=== PATIENT | female | born 1995 | race Two or more races ===

== ENCOUNTER 2024-10-21 10:46 | Outpatient (CLI) | payer BC, SELFPAY ==
[2024-10-21 11:47] VITALS: BP 144/82; PULSE 85
[2024-10-21 12:04] VITALS: BMI 57.6
== END 2024-10-21 12:00 | disposition home or self-care (01) ==
LOC: S4S1 10:49 → S4SX 10:50
PROVIDERS: Referring Provider Obstetrics & Gynecology; Visit Provider Obstetrics & Gynecology
DX: O36.8130 Decreased fetal movements, third trimester, not applicable or unspecified (principal); Z3A.35 35 weeks gestation of pregnancy
CPT/HCPCS: 59025

== ENCOUNTER 2024-11-15 14:27 | Observation (INO) | payer BC, SELFPAY ==
[2024-11-15] VITALS (128 sets, daily range): BP systolic 115–182; BP diastolic 57–90; PULSE 73–103; RESP 17; TEMP 36.5–36.7; O2SAT 90–99; BMI 59.9
--- NOTE | 2024-11-15 15:14 | PD.LDHP ---
Documentation for date of: 11/15/24 OB Labor/Induct. HPI History of Present Illness : 4 Para: 1 Term pregnancies: 0 pregnancies: 0 Living children: 0 History of Abortions: Spontaneous and Elective: 2 History of Vaginal deliveries: 1 History of sections: No History of : No History of present illness: Presents for induction of labor at 38 weeks and 6 days. Patient has a history of chronic hypertension and a previous full-term vaginal delivery at 38 weeks in 2021, during which she developed preeclampsia at 34 weeks. The patient has an elevated BMI of 57.87 and is on labetalol for her chronic hypertension. She has been compliant with her care. Current is significant with negative toxicology screen, hemoglobin A1C of 5.5, and normal panel results. Specific lab results include negative Grubbi strip, normal CBC and RPR, and normal glucose screening. Patient has seen maternal- medicine and had a level 2 ultrasound at 23 weeks, showing estimated weight of 595 grams with no anatomic abnormalities detected. Current estimated weight is 7 and a half pounds. Recommendations for managing her chronic hypertension were made based on CHAP study findings. Diagnostic Test Results and Labs: - Gr B Strep (10-26-2024): Negative - CBC, RPR (10-07-2024): Within normal limits - Glucose Screening (09-06-2024): Normal - NIPT (06-10-2024): Negative for all trisomies, consistent with male gender - Hemoglobin A1C (05-28-2024): 5.5 - Panel (05-29-2024): Blood group B-positive, antibody screen negative, rubella immune, RPR nonreactive, hepatitis B and C negative, HIV negative - Level 2 Ultrasound (07-29-2024): Estimated weight 595 grams at 23 weeks, no anatomic abnormalities detected. Review of Systems Review of Systems Systems Reviewed: All systems reviewed, normal except as documented Past Medical History Surgical History SURGICAL: Negative Section Meds Home Medications and Allergies Home Medications ?Medication ?Instructions ?Recorded ?Confirmed ?Type prenat.vits,armond,fyx-[id number] 1 tab PO QDAY 07/18/22 10/21/24 History aspirin 81 mg tablet,delayed 81 mg PO DAILY UD 09/17/24 10/21/24 History release Allergies Allergy/AdvReac Type Severity Reaction Status Date / Time No Known Allergies Allergy Verified 10/21/24 12:07 OB Exam Physical Exam Vital signs: Pulse BP 83 143/80 H 11/15/24 14:41 11/15/24 14:41 Constitutional Constitutional: no acute distress Routine HEENT Exam Head: Present normocephalic and atraumatic Eye: Present EOMI and PERRL ENT: Present mucous membranes moist Routine Neck Exam Neck: Present supple and trachea midline Routine Cardiovascular Exam Cardiovascular: Present RRR Routine Abdominal Exam Abdominal: Present soft and normoactive bowel sounds Detailed Labor and Delivery Exam Comments: - Obstetric Examination: Cervix is closed, thick, and high. heart rate tracing shows a baseline of 145, moderate variability, accelerations present, no decelerations. Routine Extremities Exam Extremities: Present full ROM Routine Skin Exam Skin: Present intact, dry and warm Routine Neurological Exam Neurological: Present alert, oriented X3 and CN II-XII intact Routine Psychiatric Exam Psychiatric: Present normal affect and normal thought process OB Assessment & Plan Assessment and Plan (1) Encounter for induction of labor: Status: Acute Assessment and plan: Management: - Admit for labor and delivery at 38 weeks 6 days, - Induce labor with Dinoprostone for cervical ripening - Proceed to oxytocin when Byrne's score > 8 - Continuous maternal- monitoring - Offer epidural for pain management as desired - Anticipate vaginal delivery - Patient alert and oriented - heart rate: baseline 145, moderate variability, accelerations present, no decelerations Chronic Hypertension: - Continue prescribed labetalol - Monitor blood pressure closely during labor/delivery - Follow maternal- medicine recommendations based on CHAP study Elevated BMI: - BMI 57.87 - Encourage weight management and healthy lifestyle changes Preeclampsia History: - Labs: CBC, RPR, preeclampsia panel - Monitor for preeclampsia signs/symptoms during labor/delivery Group B Streptococcus: - Negative, no intrapartum antibiotic prophylaxis needed Assessment: - Estimated weight 7.5 pounds - Monitor for distress/complications during labor/delivery Blood Glucose Management: - Hemoglobin A1C 5.5 - Continue monitoring blood glucose during labor/delivery Intrapartum Care: - IV fluids: Lactated Ringer's at 25 cc/hour - Patient compliant with care, records available
--- NOTE | 2024-11-15 15:47 | XR_ITS ---
Examination: Complete OB ultrasound greater than 14 weeks Date and time of exam: November 07, 2024 1616 hrs. Indications: Labor induction today, unknown presentation Findings: Viable intrauterine single fetus with single amniotic sac presentation cephalic Cardiac motion 123 BPM Placenta posterior grade 3 Umbilical cord insertion seen Amniotic fluid index 7.5 cm Cervix 3.9 cm Ovaries obscured by bowel gas. Composite estimated gestational age based on BPD, head circumference, abdominal circumference, femur length is 38 weeks 5 days Estimated weight 3538.8 g. Survey of intracranial anatomy, spinal anatomy, abdominal anatomy, four-chamber heart performed with no abnormalities identified. Impression: Viable intrauterine gestation cephalic presentation Estimated gestational age 38 weeks 5 days Estimated weight 3538.8 g.
[2024-11-15 16:19] LABS: Basophils % (Auto) 0 % (0-2.5); Eosinophils # (Auto) 0.1 Thou/mm3 (0.0-0.5); Eosinophils % (Auto) 1 % (0-10); Hematocrit 31.8 % (36.0-46.0); Hemoglobin 10.3 g/dL (12.0-16.0); Immature Granulocytes % (Auto) 1 % (0-0); Immature Granulocytes Auto 0.11 Thou/mm3 (0.00-0.00); Lymphocytes # (Auto) 1.9 Thou/mm3 (1.0-4.8); Lymphocytes % (Auto) 17 % (10-50); Mean Corpuscular HGB Conc 32.4 g/dl (31.0-37.0); Mean Corpuscular Hemoglobin 24.2 pg (25.0-35.0); Mean Corpuscular Volume 75 fL (80-100); Monocytes # (Auto) 0.6 Thou/mm3 (0.0-0.8); Monocytes % (Auto) 5 % (0-12); Neutrophils # (Auto) 8.8 Thou/mm3 (1.8-7.7); Neutrophils % (Auto) 76 % (37-80); Nucleated Red Blood Cell % 0 /100 WBC (0); Platelet Count 250 Thou/mm3 (140-440); RDW Standard Deviation 41.1 fL (36.4-46.3); Red Blood Count 4.26 Miln/mm3 (4.00-5.20); White Blood Count 11.6 Thou/mm3 (3.6-11.0)
[2024-11-15 16:47] LABS: Alanine Aminotransferase 11 U/L (10-49); Albumin, Serum 3.8 gm/dL (3.5-5.0); Albumin/Globulin Ratio 1.6 (1.2-2.2); Alkaline Phosphatase 250 U/L (46-116); Anion Gap 9 (7-16); Aspartate Amino Transferase < 10 U/L (0-34); BUN/Creatinine Ratio 16 Ratio (12-20); Bilirubin,Total 0.3 mg/dL (0.3-1.2); Blood Urea Nitrogen 11 mg/dL (9-23); Calcium 9.4 mg/dL (8.3-10.6); Calcium (Corrected) 9.6 mg/dL (8.5-10.1); Carbon Dioxide 23.7 mMol/L (20.0-31.0); Chloride 105 mMol/L (98-107); Creatinine (Component) 0.7 mg/dL (0.6-1.3); Globulin 2.4 gm/dL (2.3-3.5); Glucose 95 mg/dL (74-106); LDH (Lactate Dehydrogenase) 181 U/L (120-246); Osmolality,Calculated 275 (275-295); Potassium 4.2 mMol/L (3.4-5.1); Sodium 138 mMol/L (136-145); Total Protein 6.2 gm/dL (5.7-8.2); eGFR > 60 See Note
[2024-11-15 17:05] LABS: Syphilis Nonreactive (Nonreactive)
[2024-11-15] MEDS: DINOPROSTONE 10 MG VAG.SUPP VAGINAL (19:16)
[2024-11-15] MEDS: LABETALOL 100 MG TABLET 200 MG PO (19:52)
[2024-11-15] MEDS: LABETALOL INJ 5 MG/ML VIAL 20 ML 40 MG IVP (20:58)
[2024-11-16] VITALS (159 sets, daily range): BP systolic 108–150; BP diastolic 57–85; PULSE 67–103; RESP 16; TEMP 36.8–37.1; O2SAT 78–99
[2024-11-16] MEDS: LABETALOL 100 MG TABLET 200 MG PO ×2 (08:10→20:00)
[2024-11-16] MEDS: MISOPROSTOL 50 mCg TABLET PO ×3 (09:25→18:17)
--- NOTE | 2024-11-16 10:42 | PD.LDPN ---
Documentation for date of: 11/16/24 OB Labor Progress Note Pelvic Exam Dilation (cm): 1 Effacement (%): 50 station: -4 Contractions Monitor mode: External Status Comments: Baseline 145, moderate variability, accelerations present and no decelerations category 1 tracing Assessment and Plan Comments: Continue current plan of care Will administer a round of misoprostol for cervical ripening
== END 2024-11-16 22:35 | disposition home or self-care (01) ==
PROVIDERS: Admitting Provider Obstetrics & Gynecology; PCP Family Medicine; Visit Provider Obstetrics & Gynecology
DX: O61.0 Failed medical induction of labor (principal); O10.913 Unspecified pre-existing hypertension complicating pregnancy, third trimester; O99.820 Streptococcus B carrier state complicating pregnancy; Z3A.38 38 weeks gestation of pregnancy
CPT/HCPCS: 36415; 59899; 76805; 80053; 83615; 84550; 85025; 86780; 86850; 86900; 86901; 96374; G0378; J2795; J3010; J3490; A9270; J1920

== ENCOUNTER 2024-11-23 17:18 | Outpatient (CLI) | payer BC, SELFPAY ==
[2024-11-23] VITALS (16 sets, daily range): BP systolic 143; BP diastolic 73; PULSE 80–101; RESP 18–98; TEMP 37; O2SAT 91–98; BMI 60.2
--- NOTE | 2024-11-23 17:54 | XR_ITS ---
Examination: Biophysical profile, ultrasound Date and time of exam: November 23, 2024 1827 hrs. Indications: Vaginal discharge today Technique: Multiple transabdominal sonographic images of the pelvis abdomen obtained. Attention is directed to the breathing movement, gross body movement, amniotic fluid volume and tone. Findings: Amniotic fluid index 8.6 cm Total biophysical profile is 8 of 8. breathing movement is 2. Gross body movement is 2. tone is 2. Qualitative amniotic fluid volume is 2 Impression: Biophysical profile is 8 of 8.
== END 2024-11-23 20:33 | disposition home or self-care (01) ==
LOC: S4S1 17:22 → S4SX 17:28
PROVIDERS: Referring Provider Obstetrics & Gynecology; Visit Provider Obstetrics & Gynecology
DX: Z34.83 Encounter for supervision of other normal pregnancy, third trimester (principal); Z36.9 Encounter for antenatal screening, unspecified; Z3A.40 40 weeks gestation of pregnancy
CPT/HCPCS: 59025; 76819

== ENCOUNTER 2024-11-25 14:44 | Inpatient (IN) | payer BC, SELFPAY ==
[2024-11-25] VITALS (12 sets, daily range): BP systolic 139–177; BP diastolic 84–98; PULSE 96–133; RESP 15–18; TEMP 36.6–36.9; O2SAT 96; BMI 60.3
--- NOTE | 2024-11-25 15:54 | XR_ITS ---
Examination: age Limited TECHNIQUE: Limited transabdominal sonographic images pelvis Exam date and time: November 25, 2024 1618 hours INDICATIONS: Onset pelvic contractions today pelvic pain, labor evaluation, unknown weight, unknown presentation FINDINGS: Viable intrauterine gestation cephalic presentation Estimated weight 4020 16 g Cardiac motion 132 BPM IMPRESSION: Viable intrauterine gestation cephalic presentation Estimated weight 4216 g
[2024-11-25 15:59] LABS: Basophils # (Auto) 0.1 Thou/mm3 (0.0-0.2); Basophils % (Auto) 0 % (0-2.5); Eosinophils # (Auto) 0.1 Thou/mm3 (0.0-0.5); Eosinophils % (Auto) 0 % (0-10); Hemoglobin 9.9 g/dL (12.0-16.0); Immature Granulocytes % (Auto) 1 % (0-0); Immature Granulocytes Auto 0.21 Thou/mm3 (0.00-0.00); Lymphocytes # (Auto) 2.2 Thou/mm3 (1.0-4.8); Lymphocytes % (Auto) 13 % (10-50); Mean Corpuscular HGB Conc 31.9 g/dl (31.0-37.0); Mean Corpuscular Hemoglobin 23.7 pg (25.0-35.0); Mean Corpuscular Volume 74 fL (80-100); Monocytes # (Auto) 0.9 Thou/mm3 (0.0-0.8); Monocytes % (Auto) 5 % (0-12); Neutrophils # (Auto) 13.8 Thou/mm3 (1.8-7.7); Neutrophils % (Auto) 80 % (37-80); Nucleated Red Blood Cell % 0 /100 WBC (0); Platelet Count 289 Thou/mm3 (140-440); RDW Standard Deviation 41.1 fL (36.4-46.3); Red Blood Count 4.18 Miln/mm3 (4.00-5.20); White Blood Count 17.3 Thou/mm3 (3.6-11.0)
[2024-11-25 16:19] LABS: INR 0.9 (0.9-1.3); Partial Thromboplastin Time 25.1 Seconds (22.0-36.0); Prothrombin Time 10.3 Seconds (9.0-12.2)
[2024-11-25 16:31] LABS: Alanine Aminotransferase 10 U/L (10-49); Albumin, Serum 4.1 gm/dL (3.5-5.0); Albumin/Globulin Ratio 1.5 (1.2-2.2); Alkaline Phosphatase 273 U/L (46-116); Anion Gap 10 (7-16); Aspartate Amino Transferase 10 U/L (0-34); BUN/Creatinine Ratio 19 Ratio (12-20); Bilirubin,Total 0.3 mg/dL (0.3-1.2); Blood Urea Nitrogen 13 mg/dL (9-23); Calcium 8.9 mg/dL (8.3-10.6); Calcium (Corrected) 8.9 mg/dL (8.5-10.1); Carbon Dioxide 20.7 mMol/L (20.0-31.0); Chloride 106 mMol/L (98-107); Creatinine (Component) 0.7 mg/dL (0.6-1.3); Estimated Creatinine Clearance 340.2 mL/min (>60); Globulin 2.7 gm/dL (2.3-3.5); Glucose 105 mg/dL (74-106); Osmolality,Calculated 273 (275-295); Potassium 4.1 mMol/L (3.4-5.1); Sodium 137 mMol/L (136-145); Total Protein 6.8 gm/dL (5.7-8.2); Uric Acid 4.5 mg/dL (3.1-7.8); eGFR > 60 See Note
[2024-11-25 16:32] LABS: Fibrinogen 633 mg/dL (175-375)
[2024-11-25 16:38] LABS: Syphilis Nonreactive (Nonreactive)
[2024-11-25 16:39] LABS: Collection Type, Urine Clean Catch
[2024-11-25 16:42] LABS: Bacteria,Urine Rare; Bilirubin,Urine Negative (Negative); Blood,Urine Negative (Negative); Clarity,Urine Clear (Clear/Hazy); Color,Urine Yellow (Lt Yel-Yel); Glucose, Urine Negative (Negative); Ketones,Urine Trace (Negative); Leukocyte Esterase,Urine Positive (Negative); Nitrite,Urine Negative (Negative); Protein,Urine 1+ (Neg - Trace); RBC,Urine 5 /hpf (0-3); Specific Gravity,Urine 1.034 (1.001-1.035); Squamous Epithelial Cell,Urine 3 /hpf (0-5); Urobilinogen,Urine Negative mg/dL (0.0-1.0); WBC,Urine 4 /hpf (0-5)
[2024-11-25] MEDS: LABETALOL 100 MG TABLET 400 MG PO (17:10)
--- NOTE | 2024-11-25 17:43 | ESHP_ITS ---
Documented by User: Abby Hoffman CNM 11/25/24 18:01 Documentation for date of: 11/25/24 OB Labor/Induct. HPI History of Present Illness : 4 Term pregnancies: 1 pregnancies: 0 Living children: 1 History of Abortions: Spontaneous and Elective: 2 History of sections: No History of : No History of present illness: 29 y/o 40w 2d Patient has a history of chronic hypertension and a previous full-term vaginal delivery at 38 weeks in 2021, during which she developed preeclampsia at 34 weeks. Pt is here after being discharge from a failed induction 11/15/24. The patient has an elevated BMI of 60 and on labetalol for her chronic hypertension. She has been compliant with her care. Current is significant with negative toxicology screen, hemoglobin A1C of 5.5, and normal panel results. Specific lab results, normal CBC with the exception of anemia and RPR, and normal glucose screening. Patient has seen maternal- medicine and had a level 2 ultrasound at 23 weeks, showing estimated weight of 595 grams with no anatomic abnormalities detected. Current estimated weight is about 4100g Recommendations for managing her chronic hypertension were made based on CHAP study findings. Diagnostic Test Results and Labs: - Gr B Strep (10-26-2024): Negative - CBC, RPR (10-07-2024): Within normal limits - Glucose Screening (09-06-2024): Normal - NIPT (06-10-2024): Negative for all trisomies, consistent with male gender - Hemoglobin A1C (05-28-2024): 5.5 - Panel (05-29-2024): Blood group B-positive, antibody screen negative, rubella immune, RPR nonreactive, hepatitis B and C negative, HIV negative - Level 2 Ultrasound (07-29-2024): Estimated weight 595 grams at 23 weeks, no anatomic abnormalities detected. History of Present Dating criteria: based on 1st trimester US only Adequate Care: Yes Ultrasounds: normal 1st trimester US and normal mid trimester US Obstetrical complications: gestational hypertension and other (Anemia) Medical complications: other (Morbid obesity with BMI 60) Labs Maternal Blood Type: B Pos Labs: Positive: Rubella Titre, Negative: RPR, Hepatitis B, HIV, Chlamydia, Gonorrhea and Group Beta Strep and Unknown: Covid-19 Review of Systems Review of Systems Systems Reviewed: All systems reviewed, normal except as documented Past Medical History Surgical History SURGICAL: Negative Section Meds Home Medications and Allergies Home Medications ?Medication ?Instructions ?Recorded ?Confirmed ?Type prenat.vits,armond,ana-[id number] 1 tab PO QDAY 07/18/22 11/25/24 History aspirin 81 mg tablet,delayed 81 mg PO DAILY UD 09/17/24 11/25/24 History release Allergies Allergy/AdvReac Type Severity Reaction Status Date / Time No Known Allergies Allergy Verified 11/25/24 16:00 OB Exam Physical Exam Vital signs: Pulse Resp BP Pulse Ox 108 H 18 145/88 H 96 11/25/24 17:41 11/25/24 15:15 11/25/24 17:41 11/25/24 15:15 Constitutional Constitutional: no acute distress Routine HEENT Exam Head: Present normocephalic and atraumatic Eye: Present EOMI, PERRL and normal accommodation ENT: Present mucous membranes moist Routine Neck Exam Neck: Present full ROM Routine Respiratory Exam Respiratory: Absent respiratory distress Routine Cardiovascular Exam Cardiovascular: Present RRR Routine Abdominal Exam Abdominal: Present soft Comments: Gravid Uterus EFW 4100g Routine Exam External: Present normal urethra appearance; Absent lesions Detailed Labor and Delivery Exam Dilation (cm): 1 Effacement (%): 0 Cervix position: posterior station: -3 Consistency: soft Presentation: Vertex Membranes: intact Baseline heart rate: 130 monitor accelerations: 15x15 monitor decelerations: None care home variability: Moderate (11-25) Contraction frequency (min): None Routine Extremities Exam Extremities: Present full ROM Routine Back/Spine/Pelvis Exam Back/Spine: Present full ROM Routine Skin Exam Skin: Present intact, dry and warm Routine Neurological Exam Neurological: Present alert, oriented X3 and CN II-XII intact Routine Psychiatric Exam Psychiatric: Present normal affect and normal thought process OB Results Labs 11/25/24 15:15 11/25/24 15:15 Labs: Short CBC 11/25/24 Range/Units 15:15 WBC 17.3 H (3.6-11.0) Thou/mm3 Hgb 9.9 L (12.0-16.0) g/dL Hct 31.0 L (36.0-46.0) % Plt Count 289 D (140-440) Thou/mm3 BMP 11/25/24 15:15 Sodium 137 Potassium 4.1 Chloride 106 Carbon Dioxide 20.7 BUN 13 Creatinine 0.7 Glucose 105 Calcium 8.9 Liver Function 11/25/24 Range/Units 15:15 Total Bilirubin 0.3 (0.3-1.2) mg/dL AST 10 (0-34) U/L ALT 10 (10-49) U/L Alkaline Phosphatase 273 H (46-116) U/L Albumin 4.1 (3.5-5.0) gm/dL Urine 11/25/24 Range/Units 15:30 Urine Color Yellow (Lt Yel-Yel) Urine Clarity Clear (Clear/Hazy) Urine pH 6.0 (5.0-7.0) Ur Specific [place] 1.034 (1.001-1.035) Urine Protein 1+ A (Neg - Trace) Urine Glucose (UA) Negative (Negative) OB Assessment & Plan Assessment and Plan (1) Encounter for induction of labor: Status: Acute (2) Morbid obesity with BMI of 60.0-69.9, adult: Status: Acute (3) Chronic hypertension affecting : Status: Acute (4) 40 weeks gestation of : Status: Acute (5) Anemia affecting in third trimester: Status: Acute Additional Plan Induction method: other (Cervidil) Plan: induction, anticipate NVD and consult MD stiles Additional Plan Comment: Dr. Young is comanaging this pt with CNM. Dr. Young is managing BP and medication CNM manage labor Continue labetalol BID PIH labs ordered US ordered for presentation which is cephalic and EFW 4000g PPH meds at bedside Shoulder precautions Preeclampsia precautions Documented by User: Deysi Young MD 11/26/24 07:52 OB Labor/Induct. HPI History of Present Illness Comments: PATIENT RETURNS BACK TODAY FOR IOL FOR CHTN ON MEDICATION( NON COMPLIANT ON MEDS AND BP IN SEVER RANGE ON ADMISSION) WAS SENT BACK AFTER SHE DID NOT CHANGE CERVICAL STATUS AFTER ADMISSION ON 11/15 BY ANOTHER PROVIDER and SCHEDULED TO RETURN AT 40W2D FOR IOL FOR CHTN on meds Meds Home Medications and Allergies Home Medications ?Medication ?Instructions ?Recorded ?Confirmed ?Type prenat.vits,armond,tks-afix-ntuvj 1 tab PO QDAY 07/18/22 11/25/24 History aspirin 81 mg tablet,delayed 81 mg PO DAILY UD 09/17/24 11/25/24 History release Allergies Allergy/AdvReac Type Severity Reaction Status Date / Time No Known Allergies Allergy Verified 11/25/24 16:00 OB Exam Physical Exam Vital signs: Pulse Resp BP Pulse Ox 108 H 18 145/88 H 96 11/25/24 17:41 11/25/24 15:15 11/25/24 17:41 11/25/24 15:15 OB Results Labs 11/25/24 15:15 11/25/24 15:15 Labs: Short CBC 11/25/24 Range/Units 15:15 WBC 17.3 H (3.6-11.0) Thou/mm3 Hgb 9.9 L (12.0-16.0) g/dL Hct 31.0 L (36.0-46.0) % Plt Count 289 D (140-440) Thou/mm3 BMP 11/25/24 15:15 Sodium 137 Potassium 4.1 Chloride 106 Carbon Dioxide 20.7 BUN 13 Creatinine 0.7 Glucose 105 Calcium 8.9 Liver Function 11/25/24 Range/Units 15:15 Total Bilirubin 0.3 (0.3-1.2) mg/dL AST 10 (0-34) U/L ALT 10 (10-49) U/L Alkaline Phosphatase 273 H (46-116) U/L Albumin 4.1 (3.5-5.0) gm/dL Urine 11/25/24 Range/Units 15:30 Urine Color Yellow (Lt Yel-Yel) Urine Clarity Clear (Clear/Hazy) Urine pH 6.0 (5.0-7.0) Ur Specific [place] 1.034 (1.001-1.035) Urine Protein 1+ A (Neg - Trace) Urine Glucose (UA) Negative (Negative) OB Assessment & Plan Assessment and Plan (1) Encounter for induction of labor: Status: Acute (2) Morbid obesity with BMI of 60.0-69.9, adult: Status: Acute (3) Chronic hypertension affecting : Status: Acute (4) 40 weeks gestation of : Status: Acute (5) Anemia affecting in third trimester: Status: Acute
[2024-11-25] MEDS: DINOPROSTONE 10 MG VAG.SUPP VAGINAL (18:00)
[2024-11-26] VITALS (143 sets, daily range): BP systolic 110–182; BP diastolic 56–100; PULSE 36–117; RESP 14–20; TEMP 36.6–37.2; O2SAT 87–100
[2024-11-26] MEDS: LABETALOL 100 MG TABLET 400 MG PO ×2 (00:53→09:02)
[2024-11-26] MEDS: ceFAZolin/D5W 2 GM IV 2 GM/100 ML BAG IV (03:13)
--- NOTE | 2024-11-26 04:49 | PD.LDPN ---
Documentation for date of: 11/26/24 OB Labor Progress Note Pelvic Exam Dilation (cm): 1 Effacement (%): 0 station: -3 Contractions Contraction frequency: None Assessment and Plan Comments: This is a retrospective note. This patient was being induced for chronic hypertension uncontrolled. Of note this patient is morbidly obese with BMI of 60 and was brought for induction on 15 November however because she did not change her cervical status she was sent home to return back on the . On admission the patient had elevated blood pressures and admitted of not taking her labetalol in the morning after p.o. administration of labetalol the patient came back to her normal systolic blood pressure which was in 140 and has been in 140 systolic until at 1:08 AM when she was due for her next dose of labetalol and about to get epidural. After epidural anticipating drop in blood pressure(also because the patient had just received her oral labetalol) IV medications where hold.on evaluation after the epidural blood pressures were again and 140 systolic . I was called by the room nurse at 2:55 AM that the baby is down in 80s. I evaluated the patient at the bedside at 3:05 AM. heart monitoring showed heart tones in 110. For last 10 minutes. Tracing was very interrupted, possibility of maternal heart tones being picked up was notified to me by the room nurse. On vaginal exam patient was 4 to 5 cm. Given the morbid obesity heart tones I planned for rupture of membranes and placing internal monitors. Gross bloody amniotic fluid was seen on a room. Suspecting an placental abruption stat was called
--- NOTE | 2024-11-26 04:56 | PD.GYNPROC ---
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 Identity was confirmed by double identifiers and she was placed on the operating table.The abdomen and perineum were prepped in the usual sterile fashion and a Jaime catheter was placed to continuous drainage.? Sterile drapes were applied.??A Pfannenstiel skin incision was made with a scalpel and carried to the subcutaneous fat up to the rectus fascia.? The rectus fascia was incised on either side of the midline and the incisions were extended bilaterally.? The fascia was gently dissected off the ventral surface of the rectus muscle both superiorly and inferiorly.. Carefully a peritioneal window craeted and after ruling out adhesion of bowel and bladder it was extended . Hysterotomy incision done on rupture of membranes gross bloody amniotic fluid was seen along with about 500 cc of blood clot. The baby was cephalic position delivered via vertex umbilical cord , was doubly clamped, divided and the infant was handed over to the waiting team.? placenta delivered by controlled cord traction . The interior of the uterus was now thorougly cleaned of all blood and debris and membranes.? Given patient's morbid obesity 2 assistants were required to achieve adequate exposure uterus was exteriorized anterior of the uterus was again cleaned. The? hysterotomy was closed using 0 vicryl suture in double layers. Once the repair was completed the hysterotomy was inspected, was noted to be adequately hemostatic . Muscle oozing stopped by bovie. The rectus fascia was repaired using PDS in a running fashion.? The subcutaneous layer was now, approximated with 3-0 vicryl in double layers.? All bleeding points were cauterized using the Bovie.?The skin was closed using 4-0 Monocryl in a subcuticular fashion.? The skin was cleaned and a sterile dressing was applied. The patient was now undraped, the abdomen and back were thoroughly cleaned and she was now transferred to the recovery room in a stable Estimated blood loss (ml): 1,000 Narrative: A total blood loss of 1500 including 500 cc of blood clot recovered during the Surgical staff Operation Date: 11/26/24 03:15 <No data on this case meets the specified criteria> Diagnosis Problem List Completed Was Problem List Reviewed/Reconciled?: Yes
[2024-11-26] MEDS: OXYTOCIN in NS 20 units 20 UNIT/1,000 ML BAG 125 UNIT IV (07:50)
--- NOTE | 2024-11-26 07:52 | OBDSUM_ITS ---
Vacuum Assisted Delivery Additional Comments Additional comments: TXA given DIC labs drawn 2nd set IV Transfusion started 2 units Data (Armando) Data Hx Section: No : 4 Para: 1 Term: 1 : 0 : 2 Delivery Data (Armando) Labor Data Induction: Yes ROM Date: 11/26/24 ROM Time: 03:11 Rupture Type: AROM Amniotic Fluid: Bloody Delivery Data Labor Onset Stage 1 Date: 11/26/24 Labor Onset Stage 1 Time: 03:26 Labor Onset Stage 2 Date: 11/26/24 Labor Onset Stage 2 Time: 03:26 Delivery Date: 11/26/24 Delivery Time: 03: Gestational age (weeks): 40 Gestational age (days): 3 Placenta Delivery Date: 11/26/24 Placenta Delivery Time: 03:27 Delivered by: Deysi Young Delivery nurse: Caity Monreal Other staff at delivery: Nursery Nurse Other staff at delivery: Nurse Other staff at delivery: 2nd Nurse Other staff at delivery: Virginie Rose Other staff at delivery: Katie Jim Other staff at delivery: MATIAS CARNEY Delivery Method Delivery: Delivery Type: Primary Anesthesia Type Primary Anesthesia: Epidural Placenta Placenta Delivery: Manual EBL Estimated blood loss (ml): 1,500 Umbilical Cord Placenta/Cord Complication: Placental Abruption [place] Data (Armando) Data Infant Gender: Male Weight Grams: 3830 1 Minute Total: 4 5 Minute Total: 7 10 Minute Total: 8
[2024-11-26] MEDS: KETOROLAC INJ 30 MG/ML VIAL IVP (08:05)
[2024-11-26] MEDS: LABETALOL INJ 5 MG/ML VIAL 20 ML 20 MG IVP (10:20)
--- NOTE | 2024-11-26 10:44 | CHAP ---
Patient was visited by a Spiritual Care Volunteer on 11/26/2024 between 0900 and 1036 and received comfort, encouragement and/or prayer.
[2024-11-26] MEDS: HYDROcodone/APAP 5/325 TABLET 1 TAB PO ×2 (10:58→16:59)
[2024-11-26 11:40] LABS: Basophils % (Auto) 0 % (0-2.5); Eosinophils % (Auto) 0 % (0-10); Hematocrit 25.3 % (36.0-46.0); Immature Granulocytes % (Auto) 1 % (0-0); Immature Granulocytes Auto 0.16 Thou/mm3 (0.00-0.00); Lymphocytes # (Auto) 2.3 Thou/mm3 (1.0-4.8); Lymphocytes % (Auto) 13 % (10-50); Mean Corpuscular HGB Conc 33.2 g/dl (31.0-37.0); Mean Corpuscular Hemoglobin 25.1 pg (25.0-35.0); Mean Corpuscular Volume 76 fL (80-100); Monocytes # (Auto) 1.1 Thou/mm3 (0.0-0.8); Monocytes % (Auto) 6 % (0-12); Neutrophils # (Auto) 13.4 Thou/mm3 (1.8-7.7); Neutrophils % (Auto) 79 % (37-80); Nucleated Red Blood Cell % 0 /100 WBC (0); Platelet Count 187 Thou/mm3 (140-440); RDW Standard Deviation 42.5 fL (36.4-46.3); Red Blood Count 3.35 Miln/mm3 (4.00-5.20); White Blood Count 16.9 Thou/mm3 (3.6-11.0)
[2024-11-26 11:50] LABS: D-Dimer 409 ng/mL (<600)
[2024-11-26 11:52] LABS: Fibrinogen 439 mg/dL (175-375); Partial Thromboplastin Time 26.9 Seconds (22.0-36.0); Prothrombin Time 10.5 Seconds (9.0-12.2)
[2024-11-26 11:58] LABS: Hemoglobin 8.4 g/dL (12.0-16.0)
[2024-11-26 20:58] LABS: Basophils % (Auto) 0 % (0-2.5); Eosinophils # (Auto) 0.1 Thou/mm3 (0.0-0.5); Eosinophils % (Auto) 0 % (0-10); Hematocrit 25.7 % (36.0-46.0); Immature Granulocytes % (Auto) 1 % (0-0); Immature Granulocytes Auto 0.19 Thou/mm3 (0.00-0.00); Lymphocytes # (Auto) 2.1 Thou/mm3 (1.0-4.8); Lymphocytes % (Auto) 12 % (10-50); Mean Corpuscular HGB Conc 32.3 g/dl (31.0-37.0); Mean Corpuscular Hemoglobin 24.6 pg (25.0-35.0); Mean Corpuscular Volume 76 fL (80-100); Monocytes # (Auto) 1.1 Thou/mm3 (0.0-0.8); Monocytes % (Auto) 6 % (0-12); Neutrophils # (Auto) 14.8 Thou/mm3 (1.8-7.7); Neutrophils % (Auto) 81 % (37-80); Nucleated Red Blood Cell % 0 /100 WBC (0); Platelet Count 208 Thou/mm3 (140-440); RDW Standard Deviation 43.4 fL (36.4-46.3); Red Blood Count 3.37 Miln/mm3 (4.00-5.20); White Blood Count 18.3 Thou/mm3 (3.6-11.0)
[2024-11-26 21:20] LABS: Hemoglobin 8.3 g/dL (12.0-16.0)
[2024-11-26] MEDS: HYDROcodone/APAP 5/325 TABLET 2 TAB PO (22:48)
[2024-11-27] VITALS (10 sets, daily range): BP systolic 120–156; BP diastolic 68–88; PULSE 89–125; RESP 16–28; TEMP 36.6–37.2; O2SAT 97–99
[2024-11-27] MEDS: IBUPROFEN TAB 400 MG TABLET 800 MG PO (01:58)
[2024-11-27] MEDS: LABETALOL 100 MG TABLET 400 MG PO ×3 (05:44→22:02)
[2024-11-27] MEDS: SIMETHICONE 80 MG CHEW PO (09:35)
[2024-11-27] MEDS: ENOXAPARIN SOD INJ 120 MG/0.8 ML SYRINGE SC (09:36)
--- NOTE | 2024-11-27 10:09 | ESPR_ITS ---
Subjective Subjective Interval history: Mis is doing well, overall. Had a little more pain last night so needed to take 2 norco tabs but pain well controlled after that. She is ambulating no lightheadedness. Tolerating regular diet no n/v. Passed gas but no BM just yet. Spontaneously voiding without issue. Minimal lochia. Baby still in NICU, patient hopeful baby will be discharged from NICU to her today. Exam Vital Signs Temp Pulse Resp BP Pulse Ox 97.8 F 89 16 120/71 97 11/27/24 07:45 11/27/24 07:45 11/27/24 07:45 11/27/24 07:45 11/27/24 07:45 Narrative Exam General: well developed, well nourished, no acute distress, conversant Cardiac: normal heart rate Lungs: breathing without distress Abdomen: soft, post-gravid, non-tender, no rebound or guarding, pfannenstiel incision covered by dry/clean/intact prineo bandage beneath pannus Extremities: no pain with palpation of calves, trace edema of BLE Objective Labs 11/26/24 20:36 11/25/24 15:15 Labs: Laboratory Results - last 24 hr 11/26/24 11/26/24 11:15 20:36 WBC 16.9 H 18.3 H RBC 3.35 L 3.37 L Hgb 8.4 L 8.3 L Hct 25.3 L 25.7 L MCV 76 L 76 L MCH 25.1 24.6 L MCHC 33.2 32.3 RDW Std Deviation 42.5 43.4 Plt Count 187 D 208 Neut % (Auto) 79 81 H Lymph % (Auto) 13 12 [place] % (Auto) 6 6 Eos % (Auto) 0 0 Baso % (Auto) 0 0 Neut # (Auto) 13.4 H 14.8 H Lymph # (Auto) 2.3 2.1 [place] # (Auto) 1.1 H 1.1 H Eos # (Auto) 0.0 0.1 Baso # (Auto) 0.0 0.0 Immature Gran # (Auto) 0.16 H 0.19 H Absolute Nucleated RBC 0.00 0.00 Immature Gran % 1 H 1 H Nucleated RBC % 0 0 PT 10.5 INR 1.0 APTT 26.9 Fibrinogen 439 H D-Dimer 409 Assessment & Plan Problem List (1) Encounter for induction of labor: Status: Acute (2) Morbid obesity with BMI of 60.0-69.9, adult: Status: Acute (3) Chronic hypertension affecting : Status: Acute (4) 40 weeks gestation of : Status: Acute (5) Anemia affecting in third trimester: Status: Acute (6) hemorrhage: Status: Acute (7) Placental abruption affecting delivery: Status: Acute (8) Obstructive sleep apnea: Status: Acute Assessment Comment Assessment comment: Mis is a 29yo [id number] s/p PLTCS for placental abruption with Cat II FHRT, doing well on POD 1. Surgery complicated by PPH (1000ml surgical blood loss + 500ml blood loss related to abruption). She received 2 units of pRBCs with post- transfusion Hgb 8.3, plt 208. Vitals wnl, benign exam. Hemodynamically stable with no evidence of infection. complicated by: Obesity BMI 59 Chronic hypertension on ASA 81mg PO QD and labetalol 200mg PO BID Obstructive sleep apnea Anemia Plan: -Continue routine /post-op care -Regular diet -Pain control with motrin and norco -Continue labetalol 200mg PO BID -Will initiate prophylactic lovenox 120mg SQ QD during hospital stay given risk factor of BMI -Ferrous sulfate for anemia -Encourage ambulation and use of IS -Anticipate discharge home tomorrow if meeting all milestones Time Spent With Patient Time: Total time spent is greater than 50% in coordination of care (as documented) at patient's floor/unit and/or counseling patient:
[2024-11-27] MEDS: FERROUS SULF 325 MG TABLET PO (10:47)
[2024-11-27] MEDS: HYDROcodone/APAP 5/325 TABLET 1 TAB PO (12:37)
[2024-11-27] MEDS: ACETAMINOPHEN 325 MG TABLET 650 MG PO ×2 (15:40→21:37)
--- NOTE | 2024-11-27 19:22 | EKG_ITS ---
[facility] Test Date: 2024-11-27 Pat Name: TARAH DENNIS Department: Room: [facility] Gender: Female Plastic Extrusion Operator: TOMÁS : 1995 Requested By: Millie Ramos Order Number: [id number] Reading MD: Millie Ramos Measurements Intervals [place] Rate: 122 P: 54 ID: [id number] QRS: 45 QRSD: 89 T: 6 QT: 297 QTc: 425 Interpretive Statements SINUS TACHYCARDIA ABNORMAL RHYTHM ECG No previous ECG available for comparison /[id number]/[email or web address]/[id number]
[2024-11-27 21:06] LABS: Basophils % (Auto) 0 % (0-2.5); Eosinophils # (Auto) 0.1 Thou/mm3 (0.0-0.5); Eosinophils % (Auto) 1 % (0-10); Hematocrit 22.3 % (36.0-46.0); Immature Granulocytes % (Auto) 2 % (0-0); Immature Granulocytes Auto 0.31 Thou/mm3 (0.00-0.00); Lymphocytes # (Auto) 2.6 Thou/mm3 (1.0-4.8); Lymphocytes % (Auto) 16 % (10-50); Mean Corpuscular HGB Conc 32.7 g/dl (31.0-37.0); Mean Corpuscular Hemoglobin 24.9 pg (25.0-35.0); Mean Corpuscular Volume 76 fL (80-100); Monocytes % (Auto) 6 % (0-12); Neutrophils # (Auto) 12.2 Thou/mm3 (1.8-7.7); Neutrophils % (Auto) 76 % (37-80); Nucleated Red Blood Cell # 0.03 Thou/mm3 (0.00-0.00); Nucleated Red Blood Cell % 0 /100 WBC (0); Platelet Count 200 Thou/mm3 (140-440); RDW Standard Deviation 43.9 fL (36.4-46.3); Red Blood Count 2.93 Miln/mm3 (4.00-5.20); White Blood Count 16.1 Thou/mm3 (3.6-11.0)
[2024-11-27 21:07] LABS: Hemoglobin 7.3 g/dL (12.0-16.0)
--- NOTE | 2024-11-27 22:19 | PD.LDPPPRG ---
Exam Vital Signs Temp Pulse Resp BP Pulse Ox O2 Del Method 98.5 F 121 H 28 H 132/79 H 97 Room Air 11/27/24 21:41 11/27/24 22:02 11/27/24 21:41 11/27/24 22:02 11/27/24 21:41 11/27/24 21:41 Objective Labs 11/27/24 20:34 11/25/24 15:15 Labs: Laboratory Results - last 24 hr 11/27/24 20:34 WBC 16.1 H RBC 2.93 L Hgb 7.3 L Hct 22.3 L MCV 76 L MCH 24.9 L MCHC 32.7 RDW Std Deviation 43.9 Plt Count 200 Neut % (Auto) 76 Lymph % (Auto) 16 [place] % (Auto) 6 Eos % (Auto) 1 Baso % (Auto) 0 Neut # (Auto) 12.2 H Lymph # (Auto) 2.6 [place] # (Auto) 1.0 H Eos # (Auto) 0.1 Baso # (Auto) 0.0 Immature Gran # (Auto) 0.31 H Absolute Nucleated RBC 0.03 H Immature Gran % 2 H Nucleated RBC % 0 Assessment & Plan Problem List (1) Encounter for induction of labor: Status: Acute (2) Morbid obesity with BMI of 60.0-69.9, adult: Status: Acute (3) Chronic hypertension affecting : Status: Acute (4) 40 weeks gestation of : Status: Acute (5) Anemia affecting in third trimester: Status: Acute (6) hemorrhage: Status: Acute (7) Placental abruption affecting delivery: Status: Acute (8) Obstructive sleep apnea: Status: Acute Assessment Comment Assessment comment: Notified by RN that patient has had tachycardia this afternoon so CBC and EKG were ordered. CBC resulted with Hgb 7.3 which has down-trended from 8.3 yesterday (she received 2u pRBCs immediately post-operatively for EBL 1500ml). EKG shows sinus tachycardia. Tachycardia most likely related to anemia since patient is afebrile with no s/sx of infection. Will transfuse 1u pRBCs. Pre-medicate with PO tylenol and IV benadryl 25mg. Post-transfusion CBC to be performed 6hr after. Will continue to keep close eye to vitals. iMllie Coleman MD Time Spent With Patient Time: Total time spent is greater than 50% in coordination of care (as documented) at patient's floor/unit and/or counseling patient:
[2024-11-27] MEDS: DiphenhydrAMINE INJ 50 MG/ML VIAL 25 MG IVP (22:21)
[2024-11-28] VITALS (17 sets, daily range): BP systolic 125–169; BP diastolic 70–91; PULSE 93–118; RESP 18–32; TEMP 36.3–37.1; O2SAT 94–97
[2024-11-28] MEDS: IBUPROFEN TAB 400 MG TABLET 800 MG PO (03:40)
--- NOTE | 2024-11-28 04:49 | PC.NURSE ---
11/27/24 1930: Pts. HR 125. MD Coleman notified. EKG and CBC ordered.
--- NOTE | 2024-11-28 04:50 | PC.NURSE ---
11/27/24 2130: MD Coleman notified of CBC and EKG results. Orders received for tylenol 650mg PO and Benadryl 25mg IV push prior to administration of 1 unit of PRBCs. Ordered CBC for 6 hours post blood transfusion. Instructed to notify provider of post transfusion CBC results if Hgb less than 8.
[2024-11-28] MEDS: LABETALOL 100 MG TABLET 400 MG PO ×3 (06:21→22:08)
--- NOTE | 2024-11-28 07:35 | PC.NURSE ---
11/28/24 0730: RN updated MD Coleman on pts. status. Report given on vital signs throughout the night BP 174/84, HR 100@0700 and most recent AM vitals @0730 BP 139/85, HR 93 1 hour post labetalol 400mg administration PO. 1 unit of PRBC's finished at 0330. CBC to be drawn at 0930. 6 hours post transfusion. made aware that pt. is hopeful to attend infants appointment at [facility].
[2024-11-28] MEDS: ENOXAPARIN SOD INJ 120 MG/0.8 ML SYRINGE SC (09:17)
[2024-11-28] MEDS: FERROUS SULF 325 MG TABLET PO (09:17)
[2024-11-28 10:06] LABS: Basophils # (Auto) 0.1 Thou/mm3 (0.0-0.2); Basophils % (Auto) 0 % (0-2.5); Eosinophils # (Auto) 0.1 Thou/mm3 (0.0-0.5); Eosinophils % (Auto) 1 % (0-10); Hematocrit 23.3 % (36.0-46.0); Immature Granulocytes % (Auto) 3 % (0-0); Immature Granulocytes Auto 0.36 Thou/mm3 (0.00-0.00); Lymphocytes # (Auto) 2.2 Thou/mm3 (1.0-4.8); Lymphocytes % (Auto) 17 % (10-50); Mean Corpuscular Hemoglobin 25.4 pg (25.0-35.0); Mean Corpuscular Volume 77 fL (80-100); Monocytes # (Auto) 0.8 Thou/mm3 (0.0-0.8); Monocytes % (Auto) 6 % (0-12); Neutrophils # (Auto) 9.6 Thou/mm3 (1.8-7.7); Neutrophils % (Auto) 73 % (37-80); Nucleated Red Blood Cell # 0.06 Thou/mm3 (0.00-0.00); Nucleated Red Blood Cell % 1 /100 WBC (0); Platelet Count 211 Thou/mm3 (140-440); RDW Standard Deviation 43.4 fL (36.4-46.3); Red Blood Count 3.03 Miln/mm3 (4.00-5.20); White Blood Count 13.1 Thou/mm3 (3.6-11.0)
[2024-11-28 10:10] LABS: Hemoglobin 7.7 g/dL (12.0-16.0)
--- NOTE | 2024-11-28 12:18 | XR_ITS ---
Examination: CT abdomen with intravenous contrast CT pelvis with intravenous contrast 2-D coronal reconstructions 2-D sagittal reconstructions Date and time of exam:November 28, 2024. 1239 hours INDICATIONS: Post this week with tachycardia, anemia CTDI: vol (mGy) 25.2 DLP: (mGycm) 1703 Technique: Multiple axial sections of the abdomen and pelvis have been obtained. 64 slice high-resolution scanner used. 3 mm axial sections have been obtained, post intravenous injection 60 cc Isovue-370 2-D sagittal, coronal reconstructions obtained. Low dose protocols were performed. One or more of the following dose reduction techniques were used; automated exposure control, adjustment of the mA and/or KV according to patient size, use of iterative reconstruction technique. Findings: No focal liver or splenic lesions Contracted gallbladder No pancreatic mass or peripancreatic edema Normal adrenal glands No renal or ureteral calculi, no hydronephrosis Aorta normal size No pericecal inflammatory change Anteverted enlarged uterus Thickened heterogeneous lower uterine segment endometrial stripe 16mm Minor postoperative change in the anterior pelvic wall No pelvic hematoma Minimal air in the urinary bladder Moderate degenerative disc disease L4-L5 IMPRESSION: enlarged uterus with thickened endometrial stripe in the lower uterine segment, 16mm, recommend pelvic sonography follow-up No pelvic hematoma or free fluid in the pelvis
[2024-11-28] MEDS: ACETAMINOPHEN 325 MG TABLET 650 MG PO (14:28)
--- NOTE | 2024-11-28 14:31 | ESPR_ITS ---
Subjective Subjective Interval history: Mis is doing well, overall. Pain well controlled. Today notes a bit of numbness that comes and goes over her anterior right thigh. No issues with ambulation. No lightheadedness/dizziness. No chest pain or shortness of breath. Feels a little more energetic, not as fatigued, after receiving 1u pRBCs last night. Tolerating regular diet no n/v. Passing gas. Spontaneously voiding without issue. Minimal lochia. Exam Vital Signs Temp Pulse Resp BP Pulse Ox O2 Del Method 98.0 F 118 H 24 H 138/76 H 96 Room Air 11/28/24 08:30 11/28/24 13:33 11/28/24 08:30 11/28/24 13:33 11/28/24 08:30 11/28/24 08:30 Narrative Exam General: well developed, well nourished, no acute distress, conversant Cardiac: tachycardia Lungs: breathing without distress Abdomen: soft, post-gravid, non-tender, no rebound or guarding, pfannenstiel incision covered by dry/clean/intact prineo bandage beneath pannus Extremities: no pain with palpation of calves, trace edema of BLE Objective Labs 11/28/24 09:45 11/25/24 15:15 Labs: Laboratory Results - last 24 hr 11/25/24 11/27/24 11/27/24 15:15 20:34 22:17 WBC 16.1 H RBC 2.93 L Hgb 7.3 L Hct 22.3 L MCV 76 L MCH 24.9 L MCHC 32.7 RDW Std Deviation 43.9 Plt Count 200 Neut % (Auto) 76 Lymph % (Auto) 16 [place] % (Auto) 6 Eos % (Auto) 1 Baso % (Auto) 0 Neut # (Auto) 12.2 H Lymph # (Auto) 2.6 [place] # (Auto) 1.0 H Eos # (Auto) 0.1 Baso # (Auto) 0.0 Immature Gran # (Auto) 0.31 H Absolute Nucleated RBC 0.03 H Immature Gran % 2 H Nucleated RBC % 0 Blood Type B Positive Antibody Screen NEGATIVE Crossmatch See Detail See Detail Blood Bank Wristband ID Yes 11/28/24 09:45 WBC 13.1 H RBC 3.03 L Hgb 7.7 L Hct 23.3 L MCV 77 L MCH 25.4 MCHC 33.0 RDW Std Deviation 43.4 Plt Count 211 Neut % (Auto) 73 Lymph % (Auto) 17 [place] % (Auto) 6 Eos % (Auto) 1 Baso % (Auto) 0 Neut # (Auto) 9.6 H Lymph # (Auto) 2.2 [place] # (Auto) 0.8 Eos # (Auto) 0.1 Baso # (Auto) 0.1 Immature Gran # (Auto) 0.36 H Absolute Nucleated RBC 0.06 H Immature Gran % 3 H Nucleated RBC % 1 H Blood Type Antibody Screen Crossmatch Blood Bank Wristband ID Impressions Impression: Examination: CT abdomen with intravenous contrast CT pelvis with intravenous contrast 2-D coronal reconstructions 2-D sagittal reconstructions Date and time of exam:November 28, 2024. 1239 hours INDICATIONS: Post this week with tachycardia, anemia CTDI: vol (mGy) 25.2 DLP: (mGycm) 1703 Technique: Multiple axial sections of the abdomen and pelvis have been obtained. 64 slice high-resolution scanner used. 3 mm axial sections have been obtained, post intravenous injection 60 cc Isovue-370 2-D sagittal, coronal reconstructions obtained. Low dose protocols were performed. One or more of the following dose reduction techniques were used; automated exposure control, adjustment of the mA and/or KV according to patient size, use of iterative reconstruction technique. Findings: No focal liver or splenic lesions Contracted gallbladder No pancreatic mass or peripancreatic edema Normal adrenal glands No renal or ureteral calculi, no hydronephrosis Aorta normal size No pericecal inflammatory change Anteverted enlarged uterus Thickened heterogeneous lower uterine segment endometrial stripe 16mm Minor postoperative change in the anterior pelvic wall No pelvic hematoma Minimal air in the urinary bladder Moderate degenerative disc disease L4-L5 IMPRESSION: enlarged uterus with thickened endometrial stripe in the lower uterine segment, 16mm, recommend pelvic sonography follow-up No pelvic hematoma or free fluid in the pelvis Assessment & Plan Problem List (1) Placental abruption affecting delivery: Status: Acute Assessment and plan: Mis is a 29yo [id number] s/p PLTCS for placental abruption with Cat II FHRT, doing well on POD 2. Surgery complicated by PPH (1000ml surgical blood loss + 500ml blood loss related to abruption). She initially received 2 units of pRBCs with post-transfusion Hgb 8.3. On 11/27 she was noted to have tachycardia and thus CBC and EKG were performed. Hgb was noted 7.3, so she received 1u pRBCs and 6 hour post-transfusion repeat CBC showed an increase only to 7.7. Given unexpected small increase, CT abd/pelv was performed which was normal (no internal bleeding). Since she remains tachycardic with pulse 120's at Hgb 7.7, I have counseled her on one more transfusion of 1u pRBCs to address the tachycardia which is likely resultant from the decreased O2 carrying capacity. Afebrile, normotensive overall, benign exam. No evidence of infection. complicated by: Obesity BMI 59 Chronic hypertension requiring ASA 81mg PO QD and labetalol 200mg PO BID during . OLIVIA(?) Anemia Plan: -Continue routine /post-op care -Discussed CT findings with patient providing reassurance, recommended 1 more unit of pRBCs which she is amenable to. Plan to pre-medicate with tylenol and repeat CBC 4 hours after transfusion. -Baby was discharged for echo appointment in another [facility] and both my and associate account executive's recommendation is for baby to board with patient once appointment is completed today. This would reduce risk for depression. Patient is feeling very down regarding missing time with baby while baby was in NICU and now when baby has left hospital for appt. Nursing team is working on this. -Regular diet -Pain control with motrin and norco -Continue labetalol 400mg PO QID -Continue prophylactic lovenox 120mg SQ QD during hospital stay given risk factor of BMI -Ferrous sulfate for anemia -Encourage ambulation and use of IS -Discharge TBD by response to transfusion today Millie Coleman MD (2) hemorrhage: Status: Acute (3) Encounter for induction of labor: Status: Acute (4) Morbid obesity with BMI of 60.0-69.9, adult: Status: Acute (5) Chronic hypertension affecting : Status: Acute (6) 40 weeks gestation of : Status: Acute (7) Anemia affecting in third trimester: Status: Acute Time Spent With Patient Time: Total time spent is greater than 50% in coordination of care (as documented) at patient's floor/unit and/or counseling patient:
--- NOTE | 2024-11-28 15:25 | PC.NURSE ---
1507: 1 unit of PRBC's initiated, verified sugey/ Kaci HAMMONDS
[2024-11-28 21:50] LABS: Basophils # (Auto) 0.1 Thou/mm3 (0.0-0.2); Basophils % (Auto) 0 % (0-2.5); Eosinophils # (Auto) 0.2 Thou/mm3 (0.0-0.5); Eosinophils % (Auto) 1 % (0-10); Lymphocytes # (Auto) 2.7 Thou/mm3 (1.0-4.8); Lymphocytes % (Auto) 20 % (10-50); Monocytes # (Auto) 0.7 Thou/mm3 (0.0-0.8); Monocytes % (Auto) 5 % (0-12); Neutrophils % (Auto) 70 % (37-80)
[2024-11-28 21:51] LABS: Immature Granulocytes % (Auto) 3 % (0-0); Immature Granulocytes Auto 0.41 Thou/mm3 (0.00-0.00); Mean Corpuscular HGB Conc 32.2 g/dl (31.0-37.0); Mean Corpuscular Hemoglobin 25.2 pg (25.0-35.0); Mean Corpuscular Volume 78 fL (80-100); Neutrophils # (Auto) 9.6 Thou/mm3 (1.8-7.7); Nucleated Red Blood Cell # 0.08 Thou/mm3 (0.00-0.00); Nucleated Red Blood Cell % 1 /100 WBC (0); Platelet Count 258 Thou/mm3 (140-440); Red Blood Count 3.45 Miln/mm3 (4.00-5.20); White Blood Count 13.7 Thou/mm3 (3.6-11.0)
[2024-11-28 22:04] LABS: Hemoglobin 8.7 g/dL (12.0-16.0)
[2024-11-28] MEDS: SIMETHICONE 80 MG CHEW PO (22:08)
[2024-11-29] VITALS (7 sets, daily range): BP systolic 111–150; BP diastolic 72–90; PULSE 89–105; RESP 16–19; TEMP 36.5–36.8; O2SAT 96–98
[2024-11-29] MEDS: LABETALOL 100 MG TABLET 400 MG PO ×2 (05:19→11:51)
--- NOTE | 2024-11-29 09:05 | PD.LDPPPRG ---
Subjective Subjective Interval history: POD3 s/p PLTCS for placental abruption with Cat II FHRT. Surgery complicated by PPH (1000ml surgical blood loss + 500ml blood loss related to abruption). Patient received 3u pRBCs. This morning doing well. No acute symptoms. No symptoms of anemia, ambulating fine. voiding, passing gas, , pain well controlled. Exam Vital Signs Temp Pulse Resp BP Pulse Ox O2 Del Method 97.9 F 89 18 136/85 H 98 Room Air 11/29/24 07:50 11/29/24 07:50 11/29/24 07:50 11/29/24 07:50 11/29/24 07:50 11/29/24 07:50 Narrative Exam General: NAD RESP: normal work of breathing Abdomen: soft, gravid, non-tender, no rebound or guarding. Incision clean, no drainage. Extremities: no pain with palpation of calves and no unilateral swelling Objective Labs 11/28/24 20:50 11/25/24 15:15 Labs: Laboratory Results - last 24 hr 11/25/24 11/27/24 11/28/24 15:15 22:17 09:45 WBC 13.1 H RBC 3.03 L Hgb 7.7 L Hct 23.3 L MCV 77 L MCH 25.4 MCHC 33.0 RDW Std Deviation 43.4 Plt Count 211 Neut % (Auto) 73 Lymph % (Auto) 17 [place] % (Auto) 6 Eos % (Auto) 1 Baso % (Auto) 0 Neut # (Auto) 9.6 H Lymph # (Auto) 2.2 [place] # (Auto) 0.8 Eos # (Auto) 0.1 Baso # (Auto) 0.1 Immature Gran # (Auto) 0.36 H Absolute Nucleated RBC 0.06 H Immature Gran % 3 H Nucleated RBC % 1 H Blood Type B Positive Antibody Screen NEGATIVE Crossmatch See Detail See Detail Blood Bank Wristband ID Yes 11/28/24 20:50 WBC 13.7 H RBC 3.45 L Hgb 8.7 L Hct 27.0 L MCV 78 L MCH 25.2 MCHC 32.2 RDW Std Deviation 46.0 Plt Count 258 D Neut % (Auto) 70 Lymph % (Auto) 20 [place] % (Auto) 5 Eos % (Auto) 1 Baso % (Auto) 0 Neut # (Auto) 9.6 H Lymph # (Auto) 2.7 [place] # (Auto) 0.7 Eos # (Auto) 0.2 Baso # (Auto) 0.1 Immature Gran # (Auto) 0.41 H Absolute Nucleated RBC 0.08 H Immature Gran % 3 H Nucleated RBC % 1 H Blood Type Antibody Screen Crossmatch Blood Bank Wristband ID Assessment & Plan Problem List (1) Placental abruption affecting delivery: Status: Acute (2) hemorrhage: Status: Acute (3) Encounter for induction of labor: Status: Acute (4) Morbid obesity with BMI of 60.0-69.9, adult: Status: Acute (5) Chronic hypertension affecting : Status: Acute (6) 40 weeks gestation of : Status: Acute (7) Anemia affecting in third trimester: Status: Acute Plan Comment Plan Comment: -Appropriate rise in Hgb this AM after 3rd pRBC, and HDS, HR 89, no hypotension - High mild rang blood pressure this AM, plan for continue to monitor, if normotensive throughout today, plan for PM discharge. No s/s of PEC. - Pain well controlled - Meeting other postoperative milestones Time Spent With Patient Time: Total time spent is greater than 50% in coordination of care (as documented) at patient's floor/unit and/or counseling patient:
[2024-11-29] MEDS: FERROUS SULF 325 MG TABLET PO (09:36)
[2024-11-29] MEDS: ACETAMINOPHEN 325 MG TABLET 650 MG PO (09:36)
--- NOTE | 2024-11-29 09:48 | PD.LDDS ---
DS: Providers Provider Date of admission: 11/25/24 14:44 Primary care physician: Physician No Primary/Family Admitting Provider: Deysi Young MD Attending Provider on Admission: Deysi Young MD Consults: 11/26/24 04:55 Referral Routine Comment: Attending Provider on DC: Sierra Escobar MD Discharging Provider: Sierra Escobar MD Summary/Hosp Course Brief History: 29 y/o 40w 2d Patient has a history of chronic hypertension and a previous full-term vaginal delivery at 38 weeks in 2021, during which she developed preeclampsia at 34 weeks. Pt is here after being discharge from a failed induction 11/15/24. The patient has an elevated BMI of 60 and on labetalol for her chronic hypertension. She has been compliant with her care. Current is significant with negative toxicology screen, hemoglobin A1C of 5.5, and normal panel results. Specific lab results, normal CBC with the exception of anemia and RPR, and normal glucose screening. Patient has seen maternal- medicine and had a level 2 ultrasound at 23 weeks, showing estimated weight of 595 grams with no anatomic abnormalities detected. Current estimated weight is about 4100g Recommendations for managing her chronic hypertension were made based on CHAP study findings. Diagnostic Test Results and Labs: - Gr B Strep (10-26-2024): Negative - CBC, RPR (10-07-2024): Within normal limits - Glucose Screening (09-06-2024): Normal - NIPT (06-10-2024): Negative for all trisomies, consistent with male gender - Hemoglobin A1C (05-28-2024): 5.5 - Panel (05-29-2024): Blood group B-positive, antibody screen negative, rubella immune, RPR nonreactive, hepatitis B and C negative, HIV negative - Level 2 Ultrasound (07-29-2024): Estimated weight 595 grams at 23 weeks, no anatomic abnormalities detected. Peripartum Data Procedures: Procedures Operation Date: 11/26/24 03:15 Actual Procedure Side Surgeon p in OB Deysi Young MD Time Spent with Patient Time attestation: Total time spent providing and/or coordinating discharge services: Exam Vital Signs Temp Pulse Resp BP Pulse Ox O2 Del Method 97.9 F 89 18 136/85 H 98 Room Air 11/29/24 07:50 11/29/24 07:50 11/29/24 07:50 11/29/24 07:50 11/29/24 07:50 11/29/24 07:50 Discharge Plan Prescriptions/Referrals Prescriptions/Med Rec: No Action prenat.vits,armond,[id number] Tablet 1 tab PO QDAY labetalol 200 mg tablet 200 mg PO BID Qty: 60 0RF aspirin 81 mg tablet,delayed release (DR/EC) 81 mg PO DAILY UD Referrals: No Primary/Family,Physician [Primary Care Provider] - Patient/Caregiver Discharge Instructions Education Materials: C Section Dc Print Language: Faroese Planned Discharge Date 11/29/24
--- NOTE | 2024-11-29 14:09 | ESDS_ITS ---
DS: Providers Provider Date of admission: 11/25/24 14:44 Primary care physician: Physician No Primary/Family Admitting Provider: Deysi Young MD Attending Provider on Admission: Deysi Young MD Consults: 11/26/24 04:55 Referral Routine Comment: Attending Provider on DC: Sierra Escobar MD Discharging Provider: Sierra Escobar MD DS: Diagnosis Problem List Completed Was Problem List Reviewed/Reconciled?: Yes Summary/Hosp Course Brief History: 29 y/o 40w 2d Patient has a history of chronic hypertension and a previous full-term vaginal delivery at 38 weeks in 2021, during which she developed preeclampsia at 34 weeks. Pt is here after being discharge from a failed induction 11/15/24. The patient has an elevated BMI of 60 and on labetalol for her chronic hypertension. She has been compliant with her care. Current is significant with negative toxicology screen, hemoglobin A1C of 5.5, and normal panel results. Specific lab results, normal CBC with the exception of anemia and RPR, and normal glucose screening. Patient has seen maternal- medicine and had a level 2 ultrasound at 23 weeks, showing estimated weight of 595 grams with no anatomic abnormalities detected. Current estimated weight is about 4100g Recommendations for managing her chronic hypertension were made based on CHAP study findings. Diagnostic Test Results and Labs: - Gr B Strep (10-26-2024): Negative - CBC, RPR (10-07-2024): Within normal limits - Glucose Screening (09-06-2024): Normal - NIPT (06-10-2024): Negative for all trisomies, consistent with male gender - Hemoglobin A1C (05-28-2024): 5.5 - Panel (05-29-2024): Blood group B-positive, antibody screen negative, rubella immune, RPR nonreactive, hepatitis B and C negative, HIV negative - Level 2 Ultrasound (07-29-2024): Estimated weight 595 grams at 23 weeks, no anatomic abnormalities detected. Induction hospital course: 29 y/o 40w 2d Patient with elevated BMI of 60 and on labetalol for her chronic hypertension, and anemia in . Patient was induced starting 11/15/2024 but was discharged given no change in cervical status and no rupture of membranes. She was readmitted on 11/25/2024 and induction was started. Her blood pressures were elevated in the mild range during induction. During induction, patient was noted to have FHT concerning for placental abruption consistent with vaginal exam at 4-5cm. She was recommended and underwent an emergent section for concern for placental abruption. Delivery was notable for PPH of 1500 cc total blood loss, male infant weighing 3830g with Apgars 4/7/8. In the postoperative period she had acute blood loss anemia symptoms and had a CT scan which was reassuring. She was transfused a totla of 3 units of pRBC with appropriate rise in her H/H. She was placed on prophylactic anticoagulation in the period once she was hemodynamically stable. Regarding her chronic hypertension, her labetalol and titrated and she was discharged on labetalol 400mg TID. On the day of discharge, her blood pressure remained normotensive consistently for over 6 hours on current regimen and she was discharged home with blood pressure monitoring and preeclampsia precautions. Peripartum Data Procedures: Procedures Operation Date: 11/26/24 03:15 Actual Procedure Side Surgeon p in OB Deysi Young MD Time Spent with Patient Time attestation: Total time spent providing and/or coordinating discharge services: Exam Vital Signs Temp Pulse Resp BP Pulse Ox O2 Del Method 97.9 F 91 18 132/84 H 98 Room Air 11/29/24 07:50 11/29/24 13:56 11/29/24 07:50 11/29/24 13:56 11/29/24 07:50 11/29/24 07:50 Narrative Exam General: NAD RESP: normal work of breathing Abdomen: soft, gravid, non-tender, no rebound or guarding, Fundus firm. Incision clean/dry Extremities: no pain with palpation of calves and no unilateral swelling Discharge Plan Plan Patient Disposition: HOME (Self Care) Patient condition on transfer: Stable Prescriptions/Referrals Prescriptions/Med Rec: New acetaminophen 325 mg Tablet 650 mg PO Q4H PRN (Reason: See Comments) Qty: 20 0RF hydrocodone-acetaminophen 5-325 mg Tablet 1 tab PO Q6HR MDD 4 tabs PRN (Reason: Pain) Qty: 10 0RF ibuprofen 400 mg Tablet 800 mg PO Q8H PRN (Reason: See Comments) Qty: 20 0RF ferrous sulfate 325 mg (65 mg iron) Tablet,Delayed Release (Dr/Ec) 325 mg PO QAM Qty: 30 0RF docusate sodium 100 mg capsule 100 mg PO QDAY Qty: 30 0RF labetalol 200 mg tablet 400 mg PO TID Qty: 90 3RF Discontinued aspirin 81 mg tablet,delayed release (DR/EC) 81 mg PO DAILY UD No Action prenat.vits,armond,vor-utxx-ochut Tablet 1 tab PO QDAY labetalol 200 mg tablet 200 mg PO BID Qty: 60 0RF Referrals: No Primary/Family,Physician [Primary Care Provider] - Patient/Caregiver Discharge Instructions Discharge Activity: activity as tolerated Other Discharge Activity Instructions:: Take blood pressure daily and call clinic or triage for blood pressures systolic >140 and diastolic >90. Call for headache, vision changes, abdominal pain. Education Materials: Depression, C Section Dc Print Language: Mongolian Stand Alone Forms: Lorraine Award Info., Patient Portal Info Letter Discharge Order Discharge Orders: Discharge (Routine); Ordered 11/29/24 Ordered By: Sierra Escobar Planned Discharge Date 11/29/24
== END 2024-11-29 14:55 | disposition home or self-care (01) | DRG 786 ==
LOC: S4SX 11-26 11:07 → S4NX 11-26 14:18
PROVIDERS: Obstetrics & Gynecology; Admitting Provider Student in an Organized Health Care Education/Training Program; Visit Provider Student in an Organized Health Care Education/Training Program
PROC: 10D00Z1 Extraction of Products of Conception, Low, Open Approach (ICD-10-PCS; CPT 59514; principal; 2024-11-26 03:00)
DX: O10.92 Unspecified pre-existing hypertension complicating childbirth (principal); O45.93 Premature separation of placenta, unspecified, third trimester; D62 Acute posthemorrhagic anemia; O72.1 Other immediate postpartum hemorrhage; O99.354 Diseases of the nervous system complicating childbirth; Z37.0 Single live birth; O99.214 Obesity complicating childbirth; E66.01 Morbid (severe) obesity due to excess calories; Z3A.40 40 weeks gestation of pregnancy; O99.02 Anemia complicating childbirth; G47.33 Obstructive sleep apnea (adult) (pediatric)
CPT/HCPCS: 36415; 74177; 74178; 76815; 80053; 81001; 84550; 85007; 85025; 85027; 85379; 85384; 85610; 85730; 86780; 86850; 86900; 86901; 86923; 93005; A4649; J0689; J1200; J1650; J1885; J2250; J2371; J2405; J2590; J2704; J2795; J3010; J3490; P9016; Q9967; A9270; J1920